=== PATIENT | male | born 1985 | race Caucasian/White ===

== ENCOUNTER 2019-04-10 05:02 | Emergency (ER) | payer SELFPAY ==
[~2019-04-10] VITALS: Ht 182.9 cm; Wt 65.8 kg
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
[2019-04-10 05:06] VITALS: BP 137/75
[2019-04-10] MEDS ORDERED: ACETAMINOPHEN EXTRA STRENGTH 500 MG TAB PO ONE (05:15)
[2019-04-10 05:18] VITALS: BP 137/75
--- NOTE | 2019-04-10 05:18 | NUR ---
PREEBOOK Patient discharged with v/s stable. Written and verbal after care instructions given and explained. Patient verbalized understanding. PT WITH [facility] Polic[facility] in custody. All questions addressed prior to discharge. Advised to follow up with PMD.
--- NOTE | 2019-04-10 05:18 | NUR ---
Note dre in ED - 04/10/19 at 0524 by MICHELINE PREEBOOK Patient discharged with v/s stable. Written and verbal after care instructions given and explained. Patient verbalized understanding. PT WITH [facility] in custody. All questions addressed prior to discharge. Advised to follow up with PMD.
== END 2019-04-10 05:18 ==
LOC: MED 05:02
DX: Z04.1 Encounter for examination and observation following transport accident (principal); Z02.89 Encounter for other administrative examinations
CPT/HCPCS: 99283